=== PATIENT | female | born 1950 | race Caucasian/White ===

== ENCOUNTER → 2023-02-04 | Outpatient (CLI) | payer MEDICARE ==
[2023-02-04 18:25] LABS: BASOPHILS ABSOLUTE AUTO 0.02 K/mm3 (0.00-0.23); BASOPHILS PERCENT AUTO 0 % (0-2); EOSINOPHILS ABSOLUTE AUTO 0.19 K/mm3 (0.00-0.68); EOSINOPHILS PERCENT AUTO 4 % (0-6); Hemoglobin 12.9 g/dL (11.5-16.0); IMMATURE GRAN ABSOLUTE AUTO 0.01 K/mm3 (0.00-0.10); IMMATURE GRAN PERCENT AUTO 0 % (0-1); LYMPHOCYTES ABSOLUTE AUTO 1.23 K/mm3 (0.84-5.20); LYMPHOCYTES PERCENT AUTO 27 % (21-46); MONOCYTES ABSOLUTE AUTO 0.24 K/mm3 (0.16-1.47); MONOCYTES PERCENT AUTO 5 % (4-13); Mean Corpuscular HGB 29.3 pg (26.0-34.0); Mean Corpuscular HGB Conc 33.1 g/dL (31.5-36.5); Mean Corpuscular Volume 88 fL (80-100); Mean Platelet Volume 10.1 fL (9.1-12.4); NEUTROPHILS ABSOLUTE AUTO 2.93 K/mm3 (1.96-9.15); NEUTROPHILS PERCENT AUTO 64 % (41-73); Platelet Count 198 K/mm3 (150-400); RDW Coefficient Variation 12.5 % (11.7-14.2); RDW Standard Deviation 40.3 fL (35.1-46.3); Red Blood Cell Count 4.41 M/mm3 (3.80-5.20); White Blood Cell Count 4.62 K/mm3 (4.00-11.30)
[2023-02-04 19:00] LABS: Alanine Aminotransfer (ALT/SGP 21 U/L (12-78); Albumin, Blood 3.9 g/dL (3.4-5.0); Albumin/Globulin Ratio 1.3 (0.8-1.8); Alk Phos 89 U/L (50-136); Anion Gap 3 mmol/L (6-16); Aspartate Aminotrans (AST/SGOT 15 U/L (12-37); Bilirubin, Total 0.4 mg/dL (0.1-1.0); Blood Urea Nitrogen 13 mg/dL (8-24); CHOL/HDL RATIO 5.6; CO2, Blood 29 mmol/L (21-32); Calcium, Blood 8.8 mg/dL (8.5-10.1); Chloride, Blood 109 mmol/L (98-108); Cholesterol 229 mg/dL (50-200); Glucose, Blood 105 mg/dL (70-99); HDL Cholesterol 41 mg/dL (>39); LDL/HDL RATIO 3.7; Low Density Lipoprotein Chol 152 mg/dL (0-110); Sodium, Blood 141 mmol/L (136-145); Total Protein, Blood 6.9 g/dL (6.4-8.2); Triglycerides 180 mg/dL (30-160); Very Low Density Lipoprot Chol 36 mg/dL (6-32)
[2023-02-04 19:03] LABS: Bun/Creatinine Ratio 13.3 (12.0-20.0); Creatinine, Blood 0.98 mg/dL (0.40-1.00); Glomerular Filtration Rate 61 (60-)
== END ==
LOC: LAB SHORT 16:25 → LAB 16:25
PROVIDERS: Nurse Practitioner Family
DX: E78.00 Pure hypercholesterolemia, unspecified (principal)
CPT/HCPCS: 80053; 80061; 85025

== ENCOUNTER 2023-06-12 09:38 | Inpatient (IN) | payer MEDICARE ==
[2023-06-12] VITALS (18 sets, daily range): BP systolic 112–173; BP diastolic 66–161
[~2023-06-12] VITALS: Ht 162.6 cm; Wt 106.3 kg
[~2023-06-12 09:38] MED LIST: LEVO750 PO; LISI20 PO; METR500 PO; VISBIOME 112.51 EACH PO
[2023-06-12 10:27] LABS: BASOPHILS ABSOLUTE AUTO 0.02 K/mm3 (0.00-0.23); BASOPHILS PERCENT AUTO 0 % (0-2); EOSINOPHILS ABSOLUTE AUTO 0.05 K/mm3 (0.00-0.68); EOSINOPHILS PERCENT AUTO 1 % (0-6); Hemoglobin 13.4 g/dL (11.5-16.0); IMMATURE GRAN ABSOLUTE AUTO 0.02 K/mm3 (0.00-0.10); IMMATURE GRAN PERCENT AUTO 0 % (0-1); LYMPHOCYTES ABSOLUTE AUTO 0.91 K/mm3 (0.84-5.20); LYMPHOCYTES PERCENT AUTO 11 % (21-46); MONOCYTES ABSOLUTE AUTO 0.46 K/mm3 (0.16-1.47); MONOCYTES PERCENT AUTO 6 % (4-13); Mean Corpuscular HGB 28.9 pg (26.0-34.0); Mean Corpuscular HGB Conc 33.5 g/dL (31.5-36.5); Mean Corpuscular Volume 86 fL (80-100); Mean Platelet Volume 9.6 fL (9.1-12.4); NEUTROPHILS ABSOLUTE AUTO 6.89 K/mm3 (1.96-9.15); NEUTROPHILS PERCENT AUTO 83 % (41-73); Platelet Count 236 K/mm3 (150-400); RDW Coefficient Variation 13.2 % (11.7-14.2); RDW Standard Deviation 41.2 fL (35.1-46.3); Red Blood Cell Count 4.64 M/mm3 (3.80-5.20); White Blood Cell Count 8.35 K/mm3 (4.00-11.30)
[2023-06-12 10:46] LABS: Albumin, Blood 4.1 g/dL (3.4-5.0); Albumin/Globulin Ratio 1.3 (0.8-1.8); Calcium, Blood 9.7 mg/dL (8.5-10.1); Creatinine, Blood 1.2 mg/dL (0.40-1.00); Globulin, Blood 3.2 g/dL (2.2-4.0); Potassium, Blood 2.8 mmol/L (3.5-5.5); Total Protein, Blood 7.3 g/dL (6.4-8.2)
[2023-06-12] MEDS ORDERED: NS 1,000 ML IV SCH (11:10)
[2023-06-12] MEDS ORDERED: Ketorolac Tromethamine 30mg Vial IM ONE (11:10)
[2023-06-12] MEDS ORDERED: Potassium Chl 20MEQ/Water100ML 100 ML IV ONE (11:10)
[2023-06-12] MEDS ORDERED: Ondansetron HCl 2 MG / ML 2ML Vial IV ONE (11:10)
[2023-06-12] MEDS ORDERED: POTASSIUM CHLORIDE 80 MEQ IV SCH (12:40)
[2023-06-12] MEDS ORDERED: Ampicillin Sod/Sulbactam Sod 3 GM in NS 100 ML IV SCH (13:00)
[2023-06-12] MEDS ORDERED: FentaNYL Citrate 50 MCG/ML 2 ML Injection IV PRN (13:10)
[2023-06-12] MEDS ORDERED: Ondansetron HCl 2 MG / ML 2ML Vial IV PRN (13:10)
[2023-06-12] MEDS ORDERED: Lactated Ringer's 1,000 ML IV SCH ×2 (13:10→14:45)
[2023-06-12] MEDS ORDERED: Potassium Chloride 40 MEQ in NS 250 ML IV SCH (13:30)
[2023-06-12] MEDS ORDERED: propofoL 20 ML IV ONE (14:51)
[2023-06-12] MEDS ORDERED: Rocuronium Bromide 10 MG/ML 5ML Injection IV ONE (14:51)
[2023-06-12] MEDS ORDERED: FentaNYL Citrate 50 MCG/ML 5 ML Injection ONE (14:51)
[2023-06-12] MEDS ORDERED: Lidocaine HCl 2% 20 ML MDV ONE (14:51)
[2023-06-12] MEDS ORDERED: Bupivacaine 0.5% HCl 5 MG/ML 30MLVIAL ONE (15:31)
[2023-06-12 16:00] LABS: PCO2 Arterial 37.5 mmHg (35-45); PO2 Arterial 162 mmHg (80-100); pH Blood Arterial 7.43 (7.35-7.45)
[2023-06-12] MEDS ORDERED: Dexamethasone Sod Phos 10 MG/ML 1ML VIAL ONE (16:22)
[2023-06-12] MEDS ORDERED: Phenylephrine HCl 100 MCG/ML-NS 10MLSYR (1MG/10ML) ONE (16:26)
[2023-06-12 16:45] LABS: Albumin, Blood 2.8 g/dL (3.4-5.0); Albumin/Globulin Ratio 1.2 (0.8-1.8); Bilirubin, Total 0.7 mg/dL (0.1-1.0); Bun/Creatinine Ratio 12.6 (12.0-20.0); Calcium, Blood 8.4 mg/dL (8.5-10.1); Creatinine, Blood 1.03 mg/dL (0.40-1.00); Globulin, Blood 2.4 g/dL (2.2-4.0); Potassium, Blood 3.1 mmol/L (3.5-5.5)
[2023-06-12 16:46] LABS: Total Protein, Blood 5.2 g/dL (6.4-8.2)
[2023-06-12] MEDS ORDERED: Ondansetron HCl 2 MG / ML 2ML Vial ONE (16:47)
[2023-06-12] MEDS ORDERED: Sugammadex Sodium 200 MG/2ML SDV (100 MG/ML) ONE (16:49)
[2023-06-12] MEDS ORDERED: FentaNYL Citrate 50 MCG/ML 2 ML Injection ONE (17:40)
[2023-06-12] MEDS ORDERED: HYDROmorphone HCl/Pf 1MG SYR ONE (18:04)
[2023-06-13] VITALS (12 sets, daily range): BP systolic 83–189; BP diastolic 50–120
[2023-06-13] MEDS ORDERED: HYDROmorphone HCl/Pf 1MG SYR IV PRN (01:05)
[2023-06-13] MEDS ORDERED: Acetaminophen 325 MG TABLET PO PRN (01:05)
[2023-06-13] MEDS ORDERED: HYDROmorphone 1 MG/ML 30 ML Bag IV PRN ×2 (01:25→07:50)
[2023-06-13 03:56] LABS: BASOPHILS PERCENT AUTO 0 % (0-2); EOSINOPHILS PERCENT AUTO 0 % (0-6); Hematocrit 36.9 % (33.0-51.0); Hemoglobin 12.5 g/dL (11.5-16.0); IMMATURE GRAN ABSOLUTE AUTO 0.03 K/mm3 (0.00-0.10); IMMATURE GRAN PERCENT AUTO 0 % (0-1); LYMPHOCYTES ABSOLUTE AUTO 0.33 K/mm3 (0.84-5.20); LYMPHOCYTES PERCENT AUTO 3 % (21-46); MONOCYTES ABSOLUTE AUTO 0.39 K/mm3 (0.16-1.47); MONOCYTES PERCENT AUTO 4 % (4-13); Mean Corpuscular HGB 29.3 pg (26.0-34.0); Mean Corpuscular HGB Conc 33.9 g/dL (31.5-36.5); Mean Corpuscular Volume 86 fL (80-100); Mean Platelet Volume 9.9 fL (9.1-12.4); NEUTROPHILS ABSOLUTE AUTO 9.55 K/mm3 (1.96-9.15); NEUTROPHILS PERCENT AUTO 93 % (41-73); Platelet Count 180 K/mm3 (150-400); RDW Coefficient Variation 13.2 % (11.7-14.2); RDW Standard Deviation 41.2 fL (35.1-46.3); Red Blood Cell Count 4.27 M/mm3 (3.80-5.20)
[2023-06-13 04:14] LABS: Bun/Creatinine Ratio 16.5 (12.0-20.0); Calcium, Blood 8.9 mg/dL (8.5-10.1); Creatinine, Blood 0.91 mg/dL (0.40-1.00); Potassium, Blood 3.4 mmol/L (3.5-5.5)
[2023-06-13] MEDS ORDERED: HYDROmorphone HCl/Pf 1MG SYR IV ONE (07:45)
[2023-06-13] MEDS ORDERED: Ketorolac Tromethamine 15mg Vial IV ONE (07:45)
--- NOTE | 2023-06-13 07:46 | NUR ---
SHIFT SUMMARY PT A&O X4. VSS T/O SHIFT. PT WITH SHADI DRESSING TO MIDLINE, DRESSING WITH SCANT AMOUNT OF OOZE AROUND EDGES OF DRESSING. PT WITH FENTANYL PER APR WITHOUT RELIEF. PROVIDER ORDERS FOR DILUADID PRN PER APR AND PLASTER AND STUCCO WORKER PUMP PER APR. THIS SEEMED TO HELP ALLIEVATE PT'S PAIN FOR A SHORT TIME, THEN PT BECAME PAINFUL, DIAPHORETIC AND "SICK". MEDICATION PER APR. PT CONTINUED TO REPORT PAIN IN "BELLY, STOMACH" 8-11/02 THAT MEDICATION IS NOT HELPING AT THIS TIME. PASSED ALONG TO DAYSHIFT RN TO REASSESS. OSTOMY IN PLACE WITH LESS THAN 200 MLS OUT OF BROWN, REDDISH LIQUID. WILL UPDATE ONCOMING RN
[2023-06-13] MEDS ORDERED: Enoxaparin 40 MG/0.4 ML SYR SC SCH (09:00)
[2023-06-13] MEDS ORDERED: Ketorolac Tromethamine 15mg Vial IV PRN (10:00)
--- NOTE | 2023-06-13 16:51 | NUR ---
SHIFT SUMMARY POD 1 COLECTOMY WITH NEW COLOSTOMY. PAIN CONTROLLED PER EMAR. PT REPORTS INCREASED RELIEF TODAY WITH START OF TORADOL. NO FLATUS SEEN IN BAG, SMALL AMOUNT OF BROWN STOOL IN BAG. PT HAS REMAINED VERY TIRED TODAY, ENCOURAGING PATIENT TO MOVE IN BED. PT AWOKE FROM A NAP EARLY THIS AFTERNOON AND REPORTED SEEING HER SON IN THE ROOM, IT RESOLVED AND HAS HAD NO FURTHER HALLUCINATIONS. INTERMITTENT NAUSEA DURING SHIFT, MANAGED WELL PER EMAR. DRESSING REMAINS UNCHANGED.
--- NOTE | 2023-06-13 16:53 | NUR ---
B/P CHARTED AND REPORTED TO PRIMARY RN AT APPROX 0735. BOTH PRIMARY RN AND [facility] COORDINATOR AWARE OF PT'S C/O PAIN AND B/P READING. THIS POLISHER ALUMINUM WAS TOLD BY PRIMARY RN THAT B/P WAS RECHECKED BY [facility] COORDINATOR AT APPROX 0900. NO FURTHER DIRECTIVE GIVEN BY PRIMARY RN TO THIS POLISHER ALUMINUM TO RECHECK PT'S B/P. THIS POLISHER ALUMINUM TOOK AND CHARTED FULL SET OF VITALS AT 1555.
[2023-06-13] MEDS ORDERED: Lactated Ringer's 1,000 ML IV ONE (18:55)
[2023-06-13 19:16] LABS: Hematocrit 41.7 % (33.0-51.0); Hemoglobin 13.6 g/dL (11.5-16.0); Mean Corpuscular HGB 28.7 pg (26.0-34.0); Mean Corpuscular HGB Conc 32.6 g/dL (31.5-36.5); Mean Corpuscular Volume 88 fL (80-100); Mean Platelet Volume 9.8 fL (9.1-12.4); Platelet Count 223 K/mm3 (150-400); RDW Coefficient Variation 13.6 % (11.7-14.2); RDW Standard Deviation 43.8 fL (35.1-46.3); Red Blood Cell Count 4.74 M/mm3 (3.80-5.20); White Blood Cell Count 5.57 K/mm3 (4.00-11.30)
--- NOTE | 2023-06-13 19:28 | NUR ---
entered room at approx 1830. pt states that she feels like she will pass out. vital signs taken. wnl. increased distention but passing stool from ostomy. catheter emptied at shift change 300 out. noted that that amount appeared to be present early afternoon. very dark in color. pt is moaning and appears very weak. notified dr. hussein. recieved orders to check vitals q2 hours, stop basal rate on the health consultant, give a 1ml bolus, labs ordered and to advance to ngt.
[2023-06-13 19:31] LABS: Bun/Creatinine Ratio 15.8 (12.0-20.0); Calcium, Blood 9.9 mg/dL (8.5-10.1); Creatinine, Blood 1.84 mg/dL (0.40-1.00); Potassium, Blood 4.5 mmol/L (3.5-5.5)
[2023-06-13 19:36] LABS: BAND PERCENT MAN 22 % (0-8); BASOPHILS PERCENT MAN 0 % (0-2); EOSINOPHILS PERCENT MAN 0 % (0-6); LYMPHOCYTES % ATYPICAL MANUAL 1 % (0-0); LYMPHOCYTES ABSOLUTE MAN 0.66 K/mm3 (0.84-5.20); LYMPHOCYTES PERCENT MAN 11 % (21-46); METAMYELOCYTE ABSOLUTE MAN 0.22 K/mm3 (0.00-0.00); METAMYELOCYTE PERCENT MAN 4 % (0-0); MONOCYTES ABSOLUTE MAN 0.55 K/mm3 (0.16-1.47); MONOCYTES PERCENT MAN 10 % (4-13); NEUTROPHILS ABSOLUTE MAN 4.12 K/mm3 (1.96-9.15); SEG NEUTROPHILS PERCENT MAN 52 % (41-73); TOTAL CELLS COUNTED 100
[2023-06-13] MEDS ORDERED: NS 1,000 ML IV SCH ×2 (20:20→21:00)
--- NOTE | 2023-06-13 20:41 | NUR ---
DR. NICOLE CAME TO SEE PATIENT. ORDERS RECIEVED TO TRANSFER TO ICU FOR CLOSER MONITORING. REPORT GIVEN TO RECIEVING ICU NURSE TAKEN OVER WITH BELONGINGS. PT HAVING THICK BROWN OUTPUT FROM NGT. FAMILY WITH PATIENT TO ICU.
[2023-06-13 22:17] LABS: Source, Urine Foley catheter
[2023-06-13 22:20] LABS: Blood, Urine 3+ (Neg); Glucose Qualitative, Urine Neg (Neg); Ketones, Urine 3+ (Neg); Leukocyte Esterase, Urine 1+ (Neg); Nitrite, Urine Neg (Neg); Protein, Urine 2+ (Neg); Specific Gravity, Urine 1.025 (1.003-1.022); Urobilinogen, Urine 1+ (Normal)
[2023-06-13] MEDS ORDERED: NS 1,000 ML IV ONE (22:30)
[2023-06-13 22:34] LABS: Appearance, Urine Hazy (Clear); Bilirubin, Urine 2+ (Neg); Color, Urine Amber (P-Yellow)
[2023-06-13 22:35] LABS: Amorphous Light (0-Heavy); Bacteria Few /hpf; Hyaline Casts 25-50 /lpf (0-2); Mucus Mod (0-Heavy); Red Blood Cells, Urine 25-50 /hpf (0-2); Squamous Epithelial Cells Not Seen /hpf (Few)
[2023-06-13] MEDS ORDERED: NS 500 ML IV ONE (23:20)
[2023-06-14] VITALS (17 sets, daily range): BP systolic 60–113; BP diastolic 44–89
[2023-06-14 03:49] LABS: Hematocrit 35.8 % (33.0-51.0); Hemoglobin 11.6 g/dL (11.5-16.0); Mean Corpuscular HGB Conc 32.4 g/dL (31.5-36.5); Mean Corpuscular Volume 90 fL (80-100); Mean Platelet Volume 9.9 fL (9.1-12.4); Platelet Count 186 K/mm3 (150-400); RDW Coefficient Variation 13.8 % (11.7-14.2); RDW Standard Deviation 45.1 fL (35.1-46.3); White Blood Cell Count 4.46 K/mm3 (4.00-11.30)
[2023-06-14 04:08] LABS: Bun/Creatinine Ratio 17.2 (12.0-20.0); Calcium, Blood 8.4 mg/dL (8.5-10.1); Creatinine, Blood 2.04 mg/dL (0.40-1.00); Phosphorus, Blood 3.5 mg/dL (2.5-4.9); Potassium, Blood 4.1 mmol/L (3.5-5.5)
[2023-06-14] MEDS ORDERED: NS 500 ML IV ONE (04:10)
[2023-06-14 04:24] LABS: BAND PERCENT MAN 29 % (0-8); BASOPHILS PERCENT MAN 0 % (0-2); EOSINOPHILS PERCENT MAN 0 % (0-6); LYMPHOCYTES ABSOLUTE MAN 0.31 K/mm3 (0.84-5.20); LYMPHOCYTES PERCENT MAN 7 % (21-46); METAMYELOCYTE ABSOLUTE MAN 0.26 K/mm3 (0.00-0.00); METAMYELOCYTE PERCENT MAN 6 % (0-0); MONOCYTES ABSOLUTE MAN 0.44 K/mm3 (0.16-1.47); MONOCYTES PERCENT MAN 10 % (4-13); MYELOCYTE ABSOLUTE MAN 0.08 K/mm3 (0.00-0.00); MYELOCYTE PERCENT MAN 2 % (0-0); NEUTROPHILS ABSOLUTE MAN 3.34 K/mm3 (1.96-9.15); SEG NEUTROPHILS PERCENT MAN 46 % (41-73); TOTAL CELLS COUNTED 100
--- NOTE | 2023-06-14 05:52 | NUR ---
PT AOX4 AND MOVES ALL EXTREMITIES. PAIN WELL MANAGED WITH ANALYTICAL LABORATORY TECHNICIAN DILAUDID. SR AND INTERMITTENTLY HYPOTENSIVE. A TOTAL OF 2L NS BOLUSES GIVEN IN ICU OVERNIGHT. 4L NC WHILE SLEEPING. NPO WITH NGT TO LIS. OSTOMY WITH GOOD OUTPUT. QUEVEDO IN PLACE WITH LOW URINE OUTPUT. NS INFUSING AT 200 ML/HR.
[2023-06-14] MEDS ORDERED: Enoxaparin 30 MG/0.3 ML SYR SC SCH (09:00)
[2023-06-14] MEDS ORDERED: Lactated Ringer's 1,000 ML IV SCH (12:00)
--- NOTE | 2023-06-14 14:01 | NUR ---
PT A/O X4, DENIES PAIN BUT DOES HAVE DILAUDID RECLAMATION KETTLE TENDER. ONLY HAS NAUSEA WHEN COLOSTOMY IS EMPTIED. NG TUBE TO LIS PUTTING OUT GREEN BILE. PT EATING ICE CHIPS. COLOSTOMY PUTTING OUT LIQUID BROWN STOOL AND URINE OUTPUT IMPROVED. BP STABLE TODAY. PT CHANGED TO SURGICAL STATUS AND TRANSFERED TO ROOM 229.
--- NOTE | 2023-06-14 14:09 | NUR ---
ARRIVAL TO UNIT PT ARRIVED TO UNIT FROM ICU. NGT CONNECTED TO L.I.S. THICK BROWN OUTPUT SUCTIONING OUT IMMEDIATLY. OSTOMY BAG HAS SMALL AMOUNT OF BROWN STOOL. MIDLINE PICCO DRESSING APPEARS CDI. FOAM COMPRESSED. PT 97% ON ROOM AIR. PT IS REQUESTING A FAN AND NO COVERS SHE WANTS TO "BE COLD" FOR HER NAUSEA. TANKAGE GRINDER PUMP CONNECTED PT USING BUTTON APPROPRIALY. AA0X4 PT SEEMS DYSPNIC WHEN TALKING BUT MAINTAINS SATURATIONS AND DENIES ANY SOB. LUNG SOUNDS CLEAR T/O. PT REPORTS HER ARMS FEEL "PUFFY" AT THIS TIME, NON PITTING BUT ARMS ARE SWOLLEN COMPARED TO YESTERDAY. PT HAS CALL LIGHT IN REACH AND IS NOTIFYING FAMILY OF HER TRANSFER. DENIES FURTHER NEEDS AT THIS TIME.
--- NOTE | 2023-06-14 18:14 | NUR ---
SHIFT SUMMARY NO ACUTE CHANGES SINCE ARRIVAL TO UNIT. OSTOMY CONTINUES TO HAVE SOFT BROWN STOOL IN BAG. APPROX 300ML OUT OF NGT SINCE ARRIVAL TO UNIT. PT EATING ICE CHIPS FOR COMFORT. THICK BROWN OUTPUT IN NGT, OUTPUT APPEARS THINNER THIS AFTERNOON. PT REPORTS PAIN BETTER TODAY. CALLING APPROPRIATLY.
[2023-06-15 04:58] LABS: Hematocrit 36.2 % (33.0-51.0); Hemoglobin 11.6 g/dL (11.5-16.0); Mean Corpuscular HGB 28.8 pg (26.0-34.0); Mean Corpuscular Volume 90 fL (80-100); Mean Platelet Volume 10.2 fL (9.1-12.4); Platelet Count 168 K/mm3 (150-400); RDW Standard Deviation 45.9 fL (35.1-46.3); Red Blood Cell Count 4.03 M/mm3 (3.80-5.20); White Blood Cell Count 5.02 K/mm3 (4.00-11.30)
[2023-06-15 05:07] VITALS: BP 93/67
[2023-06-15 05:32] LABS: Albumin, Blood 2.2 g/dL (3.4-5.0); Albumin/Globulin Ratio 0.7 (0.8-1.8); Bilirubin, Total 0.4 mg/dL (0.1-1.0); Bun/Creatinine Ratio 24.4 (12.0-20.0); Calcium, Blood 9.1 mg/dL (8.5-10.1); Creatinine, Blood 2.54 mg/dL (0.40-1.00); Globulin, Blood 3.2 g/dL (2.2-4.0); Potassium, Blood 3.4 mmol/L (3.5-5.5); Total Protein, Blood 5.4 g/dL (6.4-8.2)
[2023-06-15 05:46] LABS: BAND PERCENT MAN 40 % (0-8); BASOPHILS PERCENT MAN 0 % (0-2); EOSINOPHILS PERCENT MAN 0 % (0-6); LYMPHOCYTES ABSOLUTE MAN 0.35 K/mm3 (0.84-5.20); LYMPHOCYTES PERCENT MAN 7 % (21-46); METAMYELOCYTE PERCENT MAN 2 % (0-0); MONOCYTES PERCENT MAN 14 % (4-13); MYELOCYTE ABSOLUTE MAN 0.05 K/mm3 (0.00-0.00); MYELOCYTE PERCENT MAN 1 % (0-0); NEUTROPHILS ABSOLUTE MAN 3.81 K/mm3 (1.96-9.15); SEG NEUTROPHILS PERCENT MAN 36 % (41-73); TOTAL CELLS COUNTED 100
[2023-06-15 07:16] VITALS: BP 118/50
[2023-06-15 07:18] VITALS: BP 115/50
--- NOTE | 2023-06-15 08:24 | NUR ---
SHIFT SUMMARY POD 3- COLECTOMY W/COLOSTOMY. LLQ OSTOMY W/700ML LIQUID BROWN STOOL THIS SHIFT. NG TO R NARES W/650ML BROWNISH GREEN DRAINAGE W/SEDIMENT. MIDLINE SHADI DRESSING COMPRESSED & INTACT, MINIMAL SHADOWING ON DRESSING. PT REPORTS MIN ABD PAIN COMPARED TO PREVIOUSLY, STATES SHE PRESSES SPARES SCHEDULER TO STAY ON TOP OF PAIN LEVEL. DENIES N/V. ACTIVE BT. HAD 275ML DARK [place]A URINE OUT QUEVEDO. AOX4. VSS. CALL LIGHT IN REACH & PT ABLE TO MAKE NEEDS KNOWN.
[2023-06-15] MEDS ORDERED: NS 1,000 ML IV ONE (10:50)
[2023-06-15] MEDS ORDERED: NS KCl 20mEq 1,000 ML IV SCH (11:00)
[2023-06-15 14:41] VITALS: BP 130/60
--- NOTE | 2023-06-15 15:42 | NUR ---
OSTOMY APPLIANCE CHANGED. PT REQUIRES 2 3/4 OSTOMY APPLIANCE AT THIS TIME. INCISION SITE CLEANSED AND MEDIPORE DRESSING PLACED.
[2023-06-15] MEDS ORDERED: NS 1,000 ML IV SCH ×2 (18:05→18:25)
--- NOTE | 2023-06-15 20:03 | NUR ---
SHIFT SUMMARY PT IS POD#3 FROM COLECTOMY WITH OSTOMY. PT HAS HAD LIQUID STOOL OUTPUT FROM OSTOMY T/O THE DAY. PT CONTINUES TO HAVE SIGNIFICANT DARK GREEN OUTPUT FROM NG. PT IS TAKING IN ICE CHIPS. PT IS A 2 PERSON ASSIST FOR BED MOBILITY. SHE WORKED WITH PHYSICAL THERAPY TODAY. PAIN MANAGED WITH CHIEF SECURITY AND SAFETY OFFICER. BEDSIDE REPORT GIVEN TO PARIS GOEL.
[2023-06-15 20:37] VITALS: BP 139/72
[2023-06-15] MEDS ORDERED: Ampicillin Sod/Sulbactam Sod 3 GM in NS 100 ML IV SCH (21:00)
[2023-06-16 02:38] VITALS: BP 123/63
--- NOTE | 2023-06-16 05:41 | NUR ---
SHIFT SUMMARY AOX4. POD4-COLECTOMY W/OSTOMY. 500ML LIQUID BROWN OUTPUT FROM OSTOMY. MIDLINE MEDIPORE C/D/I. DENIES N/V. PASSING FLATUS FROM OSTOMY. QUEVEDO W/400ML DARK YELLOW UO. VSS, EXCEPT SPO2 DROPPED TO 88% ON RA WHILE SOUND ASLEEP-THEREFORE PLACED PT BACK ON 2L NC & SPO2 >95%. DENIES DYSPNEA. TOLERATING ICE CHIPS. REPORTS ONLY MINIMAL PAIN, STATES TIE KNITTER HELPER IS MANAGING PAIN LEVEL. CALL LIGHT IN REACH & WILL MONITOR.
[2023-06-16 07:23] VITALS: BP 144/78
[2023-06-16 10:24] LABS: Hematocrit 36.2 % (33.0-51.0); Hemoglobin 11.6 g/dL (11.5-16.0); Mean Corpuscular Volume 91 fL (80-100); Mean Platelet Volume 10.5 fL (9.1-12.4); Platelet Count 171 K/mm3 (150-400); RDW Coefficient Variation 14.1 % (11.7-14.2); RDW Standard Deviation 46.8 fL (35.1-46.3); White Blood Cell Count 8.36 K/mm3 (4.00-11.30)
[2023-06-16 10:44] LABS: BAND PERCENT MAN 5 % (0-8); BASOPHILS PERCENT MAN 0 % (0-2); EOSINOPHILS ABSOLUTE MAN 0.08 K/mm3 (0.00-0.68); EOSINOPHILS PERCENT MAN 1 % (0-6); LYMPHOCYTES ABSOLUTE MAN 1.25 K/mm3 (0.84-5.20); LYMPHOCYTES PERCENT MAN 15 % (21-46); METAMYELOCYTE ABSOLUTE MAN 0.16 K/mm3 (0.00-0.00); METAMYELOCYTE PERCENT MAN 2 % (0-0); MONOCYTES PERCENT MAN 6 % (4-13); NEUTROPHILS ABSOLUTE MAN 6.35 K/mm3 (1.96-9.15); SEG NEUTROPHILS PERCENT MAN 71 % (41-73); TOTAL CELLS COUNTED 100
[2023-06-16 11:17] LABS: Anion Gap 15 mmol/L (3-11); Blood Urea Nitrogen 48 mg/dL (8-24); Bun/Creatinine Ratio 45.7 (12.0-20.0); CO2, Blood 22 mmol/L (21-32); Calcium, Blood 8.4 mg/dL (8.5-10.1); Chloride, Blood 111 mmol/L (98-108); Creatinine, Blood 1.05 mg/dL (0.40-1.00); Glomerular Filtration Rate 56 (60-); Glucose, Blood 96 mg/dL (70-99); Phosphorus, Blood 3.1 mg/dL (2.5-4.9); Potassium, Blood 3.5 mmol/L (3.5-5.5); Sodium, Blood 144 mmol/L (136-145)
[2023-06-16 15:03] VITALS: BP 111/95
--- NOTE | 2023-06-16 18:36 | NUR ---
SHIFT SUMMARY PT IS POD#4 FROM COLECTOMY WITH OSTOMY. PT IS PRODUCING STOOL FROM THE OSTOMY. PT IS ALSO PASSING SOME STOOL FROM HER RECTUM. PT TOLERATED ICE CHIPS AND SIPS WITH NG TUBE CLAMPED T/O THE DAY. NG TUBE REMOVED THIS AFTERNOON, PT TOLERATING CLEAR LIQUIDS. QUEVEDO CATH REMOVED THIS AFTERNOON. PT WORKED WITH PHYSICAL THERAPY AND WAS ABLE TO SIT UP TO THE CHAIR TODAY, PT IS A 2 PERSON MINIMAL ASSIST. PAIN MANAGED WITH BINDING END STITCHER. INCREASED DRAINAGE NOTED FROM MIDLINE INCISION THIS AFTERNOON. MEDIPORE CHANGED. PT CALLS APPROPRIATELY.
[2023-06-16 19:18] VITALS: BP 119/89
--- NOTE | 2023-06-16 19:21 | NUR ---
BEDSIDE REPORT GIVEN TO MATHEW TOLEDO RN.
[2023-06-17] VITALS (8 sets, daily range): BP systolic 145–169; BP diastolic 67–101
[2023-06-17 03:28] LABS: Hematocrit 36.9 % (33.0-51.0); Hemoglobin 11.7 g/dL (11.5-16.0); Mean Corpuscular HGB 28.2 pg (26.0-34.0); Mean Corpuscular HGB Conc 31.7 g/dL (31.5-36.5); Mean Corpuscular Volume 89 fL (80-100); Mean Platelet Volume 9.9 fL (9.1-12.4); Platelet Count 199 K/mm3 (150-400); RDW Coefficient Variation 14.3 % (11.7-14.2); RDW Standard Deviation 46.4 fL (35.1-46.3); Red Blood Cell Count 4.15 M/mm3 (3.80-5.20); White Blood Cell Count 8.04 K/mm3 (4.00-11.30)
[2023-06-17 04:07] LABS: Albumin, Blood 2.1 g/dL (3.4-5.0); Anion Gap 10 mmol/L (3-11); Blood Urea Nitrogen 34 mg/dL (8-24); Bun/Creatinine Ratio 38.8 (12.0-20.0); CO2, Blood 27 mmol/L (21-32); Calcium, Blood 8.5 mg/dL (8.5-10.1); Chloride, Blood 112 mmol/L (98-108); Creatinine, Blood 0.88 mg/dL (0.40-1.00); Glomerular Filtration Rate 69 (60-); Glucose, Blood 109 mg/dL (70-99); Phosphorus, Blood 2.6 mg/dL (2.5-4.9); Potassium, Blood 3.5 mmol/L (3.5-5.5); Sodium, Blood 145 mmol/L (136-145)
[2023-06-17] MEDS ORDERED: NS 250 ML IV PRN (04:30)
--- NOTE | 2023-06-17 05:05 | NUR ---
SHIFT SUMMARY PT A&Ox4, CALLS AND COMMUNICATES NEEDS APPROPRIATELY. BP STABLE, HR 80-100's, DENIES CP/PRESSURE. SpO2> 92% RA, DENIES SOB. MIDLINE INCISION WITH LIGHT SEROSANGUINEOUS DRAINAGE, DRESSING CHANGED. OSTOMY WNL, w/ BROWN LIQUID OUTPUT. PT STILL PASSING VERY SMALL AMOUNTS OF LOOSE STOOL RECTALLY. PT w/ ONE EPISODE OF DARK GREEN EMESIS AND TWO EPISODES OF NAUSEA, MEDICATED PER EMAR. PT's ASSET SPECIALIST MANAGED PAIN. BLADDER SCANS DONE THROUGHOUT SHIFT. NO OTHER EVENTS, WILL REPORT TO ONCOMING RN.
[2023-06-17 05:41] LABS: BAND PERCENT MAN 12 % (0-8); BASOPHILS PERCENT MAN 0 % (0-2); EOSINOPHILS ABSOLUTE MAN 0.24 K/mm3 (0.00-0.68); EOSINOPHILS PERCENT MAN 3 % (0-6); LYMPHOCYTES ABSOLUTE MAN 0.24 K/mm3 (0.84-5.20); LYMPHOCYTES PERCENT MAN 3 % (21-46); METAMYELOCYTE ABSOLUTE MAN 0.08 K/mm3 (0.00-0.00); METAMYELOCYTE PERCENT MAN 1 % (0-0); MONOCYTES ABSOLUTE MAN 1.04 K/mm3 (0.16-1.47); MONOCYTES PERCENT MAN 13 % (4-13); MYELOCYTE ABSOLUTE MAN 0.32 K/mm3 (0.00-0.00); MYELOCYTE PERCENT MAN 4 % (0-0); NEUTROPHILS ABSOLUTE MAN 6.11 K/mm3 (1.96-9.15); SEG NEUTROPHILS PERCENT MAN 64 % (41-73); TOTAL CELLS COUNTED 100
[2023-06-17] MEDS ORDERED: Lactated Ringer's 1,000 ML IV SCH (10:05)
[2023-06-17] MEDS ORDERED: HydrALAZINE HCl 20 MG / ML 1ML Vial IV PRN (10:35)
[2023-06-17] MEDS ORDERED: Potassium Chloride 40 MEQ in NS 250 ML IV ONE (10:40)
--- NOTE | 2023-06-17 16:29 | NUR ---
SHIFT SUMMARY PATIENT IS ALERT AND ORIENTED X 4. PATIENT IS VERY PLEASANT AND COOPERATIVE WITH CARE. HAD SOME ISSUES WITH NAUSEA AND VOMITING DURING BEGINNING OF SHIFT AND HAD EMESIS WITH GREENISH BROWN LIQUID CONSISTENCY. MEDICATION PER EMAR FOR NAUSEA. PATIENT STATED THAT MADE HER FEEL BETTER. PATIENT WAS UP IN CHAIR WITH THERAPY. PATIENT HAD ONE UNMEASURED VOID AND DESCRIBED TO BE LARGE AMOUNT. ALSO HAD A BOWEL MOVEMENT RECTALLY. MIDLINE ABDOMEN INCISION. DRESSING REMAINED CLEAN, DRY AND INTACT. COLOSTOMY CONTINUES TO HAVE MODERATE OUTPUT AND PASSING FLATUS. ALL NEEDS ANTICIPATED AND MET. CALL LIGHT WITHING REACH.
[2023-06-18 05:15] VITALS: BP 174/88
--- NOTE | 2023-06-18 05:28 | NUR ---
SHIFT SUMMARY POD6 SIGMOID COLECTOMY W/ OSTOMY CREATION. MIDLINE INCISION DRESSING CHANGED TONIGHT D/T SS DRAINAGE. MODERATE OUTPUT OTED FROM OSTOMY, STOMA REMAINS PINK BEEFY AND MOIST. OUTPUT IS GREEN, LIQUIDY, AND MUCOUS LIKE. VSS, SOME HTN NOTED. PT MEDICATED PER EMAR. PT UTILIZED THE BEDPAN T/O THE NIGHT D/T DIFFUSE WEAKNESS. TOLLERATING SIPS AND CHIPS. ONE EMESIS NOTED, BRIGHT GREEN BILE LIKE LIQUID. LARGE EMESIS BUT UNABLE TO MEASURE. PT REPORTS IMMEDIATE RELIEF AFTER THIS. PT REPORTS SLEEPING WELL, PAIN IS CONTROLLED WITH OFFICE CLERK ASSISTANT. NO ACUTE EVENTS NOTED.
[2023-06-18 06:33] VITALS: BP 144/67
[2023-06-18 07:17] LABS: Albumin, Blood 2.3 g/dL (3.4-5.0); Anion Gap 13 mmol/L (3-11); Blood Urea Nitrogen 27 mg/dL (8-24); Bun/Creatinine Ratio 34.6 (12.0-20.0); CO2, Blood 26 mmol/L (21-32); Calcium, Blood 9.1 mg/dL (8.5-10.1); Chloride, Blood 113 mmol/L (98-108); Creatinine, Blood 0.78 mg/dL (0.40-1.00); Glomerular Filtration Rate 80 (60-); Glucose, Blood 102 mg/dL (70-99); Magnesium, Blood 2.3 mg/dL (1.6-2.4); Phosphorus, Blood 2.5 mg/dL (2.5-4.9); Potassium, Blood 3.6 mmol/L (3.5-5.5); Sodium, Blood 148 mmol/L (136-145)
[2023-06-18 07:22] VITALS: BP 143/67
[2023-06-18] MEDS ORDERED: HYDROmorphone HCl/Pf 1MG SYR IV PRN (12:15)
--- NOTE | 2023-06-18 13:46 | NUR ---
DIL GRADUATE RN DISCONTINUED AT THIS TIME. SPOKE WITH PATIENT AND EDUCATED ON NEW PAIN MANAGEMENT PLAN. SHE IS AGREEABLE AND REPORTS PAIN MUCH IMPROVED TODAY.
[2023-06-18] MEDS ORDERED: Nystatin 100,000 Unit/GM CREAM 15 GM TOP SCH (14:00)
--- NOTE | 2023-06-18 14:02 | NUR ---
PT REQUESTS TO BE FULL CODE AT THIS TIME. SHE SPOKE WITH FAMILY AND PHYSICIANS. SPOKE WITH DR. EDI. ORDERS PLACED AT THIS TIME PURPLE BAND REMOVED FROM LEFT WRIST.
[2023-06-18 14:30] VITALS: BP 126/70
--- NOTE | 2023-06-18 16:40 | NUR ---
SHIFT SUMMARY POSTOP DAY #5 SIGMOID COLECTOMY WITY COLOSTOMY A&O X 4. PLEASANT AND COOPERATIVE WITH NORMAL MOOD AND AFFECT. LETAHRGY AND FATIGUE IMPROVING. PARTICIPATED WITH PT AND OT TODAY. MAINTENANCE ASSOCIATE DISCONTINUED AND WAS CHANGED TO PRN IV PUSH DILAUDID EVERY TWO HOURS. PATIENT HAS NOT REQUESTED AND PAIN APPEARED TO BE MANAGED AT THIS TIME. MIDLINE ABD DRESSING CHANGED WITH NEW MEDIPORT. MODERATE SEROSANGUINEOUS EXUDATE OBSERVED. STOMA CONTINUES TO PRODUCE MODERATE AMOUNT OF STOOL. NO NAUSEA OR VOMITING THIS SHIFT. VSS. NOT HYPERTENSIVE THIS SHIFT. CONTINUES IV FLUIDS. PPN ORDERED BY PHYSICIAN AND TO START THIS EVENING WITH CBG CHECKS EVERY 6 HOURS. ALL PATIENT'S NEEDS ANTICIPATED AND MET. CALL LIGHT WITHIN REACH.
[2023-06-18 19:20] VITALS: BP 147/73
[2023-06-19 03:40] LABS: Hemoglobin 10.4 g/dL (11.5-16.0); Mean Corpuscular HGB 28.7 pg (26.0-34.0); Mean Corpuscular HGB Conc 32.5 g/dL (31.5-36.5); Mean Corpuscular Volume 88 fL (80-100); Mean Platelet Volume 10.3 fL (9.1-12.4); Platelet Count 172 K/mm3 (150-400); RDW Coefficient Variation 14.1 % (11.7-14.2); RDW Standard Deviation 45.5 fL (35.1-46.3); Red Blood Cell Count 3.62 M/mm3 (3.80-5.20); White Blood Cell Count 8.95 K/mm3 (4.00-11.30)
[2023-06-19 04:15] LABS: Anion Gap 8 mmol/L (3-11); Blood Urea Nitrogen 24 mg/dL (8-24); Bun/Creatinine Ratio 30.3 (12.0-20.0); CO2, Blood 29 mmol/L (21-32); Calcium, Blood 8.6 mg/dL (8.5-10.1); Chloride, Blood 110 mmol/L (98-108); Creatinine, Blood 0.79 mg/dL (0.40-1.00); Glomerular Filtration Rate 78 (60-); Glucose, Blood 101 mg/dL (70-99); Potassium, Blood 3.4 mmol/L (3.5-5.5); Sodium, Blood 144 mmol/L (136-145); Triglycerides 190 mg/dL (30-160)
--- NOTE | 2023-06-19 04:16 | NUR ---
SHIFT SUMMARY POD6 SIGMOID COLECTOMY W/ COLOSTOMY CREATION. MIDLINE INCISION REQUIRED ONE DRESSING CHANGE T/O THE NIGHT D/T YELLOW SS DRAINAGE. STOMA REMAINS PINK AND BEEFY W/STOOL AND FLATTUS OUTPUT. VSS. PT SLEPT WELL T/O THE NIGHT. TOLLERATING SIPS AND CHIPS. PT AMBULATED OOB TO VOID T/O THE NIGHT. SHE DID NOT REQUIRE ANY PAIN MEDICATION. DRESSING CHANGED ON POWERGLIDE LINE. PPN INFUSING PER ORDER. NO ACUTE EVENTS NOTED T/O THE NIGHT. PLAN TO CONTINUE TO WORK WITH PT/OT AND ADVANCE CARE PER DOCTOR. THE PATIENT IS CURRENTLY SLEEPING, IN NO DISTRESS, CALL LIGHT IN REACH
[2023-06-19 04:38] LABS: BAND PERCENT MAN 10 % (0-8); BASOPHILS PERCENT MAN 0 % (0-2); EOSINOPHILS ABSOLUTE MAN 0.17 K/mm3 (0.00-0.68); EOSINOPHILS PERCENT MAN 2 % (0-6); LYMPHOCYTES ABSOLUTE MAN 1.96 K/mm3 (0.84-5.20); LYMPHOCYTES PERCENT MAN 22 % (21-46); MONOCYTES ABSOLUTE MAN 0.26 K/mm3 (0.16-1.47); MONOCYTES PERCENT MAN 3 % (4-13); MYELOCYTE ABSOLUTE MAN 0.08 K/mm3 (0.00-0.00); MYELOCYTE PERCENT MAN 1 % (0-0); NEUTROPHILS ABSOLUTE MAN 6.44 K/mm3 (1.96-9.15); SEG NEUTROPHILS PERCENT MAN 62 % (41-73); TOTAL CELLS COUNTED 100
[2023-06-19 07:12] VITALS: BP 173/106
--- NOTE | 2023-06-19 07:32 | NUR ---
ASSUMPTION OF CARE AT 0500. REPORT RECEIVED FROM MICHAEL Slaughter RN. PT RESTING WITH CALL LIGHT IN REACH DURING ROUNDS. REPORT GIVEN TO DAY SHIFT RN.
[2023-06-19 08:06] VITALS: BP 150/88
[2023-06-19] MEDS ORDERED: Enoxaparin 40 MG/0.4 ML SYR SC SCH (09:00)
[2023-06-19 10:27] LABS: Phosphorus, Blood 2.8 mg/dL (2.5-4.9)
[2023-06-19] MEDS ORDERED: Furosemide 10 MG / ML 2ML Vial IV SCH (10:45)
[2023-06-19] MEDS ORDERED: Potassium Chloride 20 MEQ TabCR PO ONE (11:00)
[2023-06-19 11:23] VITALS: BP 158/88
[2023-06-19 12:57] VITALS: BP 152/81
[2023-06-19 14:47] VITALS: BP 151/79
--- NOTE | 2023-06-19 16:03 | NUR ---
MIDLINE DRESSING CHANGED AND WOUND CLEANSED. ISAIAH IN PLACE. MODERATE PURULENT DRAINAGE COVERING 75% OF DRESSING. SURROUNDING SKIN COLOR IS NORMAL FOR THE PATIENT. NO WOUND EDGE EDEMA NOTED.
--- NOTE | 2023-06-19 16:58 | NUR ---
PATIENT IS ALERT AND ORIENTED AND COOPERATIVE WITH CARE. OSTOMY IS BEEFY PINK WITH LIQUID BROWNISH/GREEN OUTPUT. STARTED ON CLEAR LIQUID DIET, SHE DID BECOME NAUSEOUS FOLLOWING LUNCH. PPN IS INFUSING. BLOOD GLUCOSE CHECKS DC'D. STARTED ON IV LASIX TODAY. FLUID BALANCE IS -2030 AT THIS TIME. UP TO THE BSC. WORKED WITH OT TODAY. NO C/O PAIN. WILL CONTINUE TO MONITOR
[2023-06-19 18:31] VITALS: BP 151/87
--- NOTE | 2023-06-19 18:47 | NUR ---
PATIENT HAS N/V FOLLOWING DINNER, MEDICATED PER EMAR
[2023-06-20 03:59] VITALS: BP 154/89
--- NOTE | 2023-06-20 06:45 | NUR ---
SHIFT SUMMARY PT HAS RESTED MOST OF THE NIGHT. INTERMITTENT ABD PAIN RELEIVED WITH MEDS PER EMAR. PT DID HAVE SOME NAUSEA WITH EMESIS AT THE START OF THE SHIFT. PT DID NOT HAVE ANYMORE N/V THE NIGHT PROGRESSED. OSTOMY PUTTING OUT BROWN LIQUID STOOL. BOWEL TONES HYPOACTIVE. PT HAS BEEN UP TO THE BSC WITH 1 PA, PT IS WEAK AND SLOW TO MOVE, BUT IS ABLE TO SWING LEGS BACK IN BED INDEPENDENTLY AFTER AMBULATING FROM THE BSC. IV NUTRITION INFUSING. VITALS STABLE. BED IN LOWEST POSITION, CALL LIGHT WITHIN REACH.
[2023-06-20 07:19] VITALS: BP 122/74
[2023-06-20 13:11] LABS: Bun/Creatinine Ratio 23.7 (12.0-20.0); Calcium, Blood 8.3 mg/dL (8.5-10.1); Creatinine, Blood 0.76 mg/dL (0.40-1.00); Potassium, Blood 3.5 mmol/L (3.5-5.5)
[2023-06-20 15:38] VITALS: BP 132/77
--- NOTE | 2023-06-20 17:08 | NUR ---
SHIFT SUMMARY POD8 SIG COL W/OSTOMY, A&OX4, VSS/RA, SHERLEY PO FULL LIQUID DIET/DENIES N&V, VOIDING WELL, AMB SBA FWW/GB TO BRP/HALLWAY AND UP TO CHAIR FOR MEALS, PAIN MANAGED, EXT DWELL DRAWS/FLUSHES WELL/PPN PER EMAR. WILL REPORT TO ONCOMING NOC AMANDO.
[2023-06-20 18:19] VITALS: BP 138/77
[2023-06-21 04:09] VITALS: BP 142/81
[2023-06-21 04:34] LABS: BASOPHILS ABSOLUTE AUTO 0.04 K/mm3 (0.00-0.23); BASOPHILS PERCENT AUTO 0 % (0-2); EOSINOPHILS ABSOLUTE AUTO 0.13 K/mm3 (0.00-0.68); EOSINOPHILS PERCENT AUTO 1 % (0-6); Hematocrit 32.7 % (33.0-51.0); Hemoglobin 10.7 g/dL (11.5-16.0); IMMATURE GRAN ABSOLUTE AUTO 0.49 K/mm3 (0.00-0.10); IMMATURE GRAN PERCENT AUTO 5 % (0-1); LYMPHOCYTES PERCENT AUTO 14 % (21-46); MONOCYTES ABSOLUTE AUTO 0.52 K/mm3 (0.16-1.47); MONOCYTES PERCENT AUTO 5 % (4-13); Mean Corpuscular HGB 28.8 pg (26.0-34.0); Mean Corpuscular HGB Conc 32.7 g/dL (31.5-36.5); Mean Corpuscular Volume 88 fL (80-100); Mean Platelet Volume 10.7 fL (9.1-12.4); NEUTROPHILS ABSOLUTE AUTO 7.77 K/mm3 (1.96-9.15); NEUTROPHILS PERCENT AUTO 74 % (41-73); Platelet Count 170 K/mm3 (150-400); RDW Coefficient Variation 13.7 % (11.7-14.2); Red Blood Cell Count 3.71 M/mm3 (3.80-5.20); White Blood Cell Count 10.45 K/mm3 (4.00-11.30)
[2023-06-21 04:52] LABS: Bun/Creatinine Ratio 26.4 (12.0-20.0); Calcium, Blood 8.3 mg/dL (8.5-10.1); Creatinine, Blood 0.68 mg/dL (0.40-1.00); Potassium, Blood 3.7 mmol/L (3.5-5.5)
[2023-06-21 07:11] VITALS: BP 131/80
--- NOTE | 2023-06-21 07:38 | NUR ---
SUMMARY PT REPORTS GOOD PAIN CONTROL.OSTOMY PATENT OF LIQ BROWN STOOL.
[2023-06-21] MEDS ORDERED: HYDROcodone 5-APAP 325 TAB PO PRN (09:30)
[2023-06-21 14:52] VITALS: BP 136/87
--- NOTE | 2023-06-21 17:36 | NUR ---
SHIFT SUMMARY POD9 SIG COL W/OSTOMY, MIDLINE MEDIPORE D/I, BROWN STOOL OUT, PT EMPTYING BAG WITH ASSIST. A&OX4, VSS/RA, SHERLEY PO REG DIET/DENIES N&V, VOIDING WELL, AMB SBA FWW/GB TO BRP/HALLWAY AND UP TO CHAIR, PAIN MANAGED WITH NORCO 5MG Q6 PRN, EXT DWELL DRAWS/FLUSHES WELL/SL. WILL REPORT TO ONCOMING NOC RN.
[2023-06-21 20:42] VITALS: BP 140/72
[2023-06-22 02:58] VITALS: BP 138/74
[2023-06-22 06:24] LABS: Bun/Creatinine Ratio 20.8 (12.0-20.0); Calcium, Blood 8.1 mg/dL (8.5-10.1); Creatinine, Blood 0.72 mg/dL (0.40-1.00); Potassium, Blood 3.3 mmol/L (3.5-5.5)
--- NOTE | 2023-06-22 06:31 | NUR ---
SUMMARY REPORTS SLEPT WELL AND HAS ADEQUATE PAIN CONTROL.
[2023-06-22 07:27] VITALS: BP 135/69
[2023-06-22] MEDS ORDERED: Lisinopril 5 MG Tab PO SCH (09:00)
[2023-06-22] MEDS ORDERED: Potassium Chloride 20 MEQ TabCR PO ONE (11:00)
[2023-06-22] MEDS ORDERED: Acetaminophen650 M1 PO (11:15)
[2023-06-22] MEDS ORDERED: Norco 5-325 Ta1 EACH PO (11:16)
[2023-06-22] MEDS ORDERED: MIRALAX17 GM PO (11:17)
[2023-06-22] MEDS ORDERED: NYSTATIN15 GM TOP (11:17)
[2023-06-22] MEDS ORDERED: SPIR25 PO (11:18)
--- NOTE | 2023-06-22 12:11 | NUR ---
SHIFT SUMMARY POD 10 SIG COL W/OSTOMY. MIDLINE MEDIPORE WNL. DRESSING C/D/I. PASSING LARGE AMOUNT OF BROWN LIQUID STOOL. A&OX4. 1 EPISODE OF EMISIS IMMEDIATELY FOLLOWIGN ORAL INTAKE OF POTASSIUM TABS. POTASSIUM TABS READMINISTERED. PAIN MANAGED PER EMAR. VSS. PLAN TO DISCHARGE HOME WITH SON. HOME HEALTH ORDERS HAVE BEEN PLACED.
--- NOTE | 2023-06-28 15:46 | NUR ---
FOLLOW UP PHONE CALL TO FAMILY PER REQUEST. PATIENT DID NOT HAVE THE SUPPLIES THAT SHE NEEDED TO TAKE CARE OF HER OSTOMY. I CALLED TO FOLLOW UP TO MAKE SURE THAT THEY HAD THE SUPPLIES AND SUPPORT THAT THEY NEEDED. THERE WAS SOME CONCERN ABOUT THE GAS OUTPUT AND SOME SKIN BREAKDOWN. HOME HEALTH WILL BE OUT TOMORROW AND I RECOMENDED THAT THEY RELAY THESE CONCERNS.
== END 2023-06-22 12:19 | disposition home health service (06) | DRG 329 ==
LOC: ER 09:38 → SURS 09:39 → ICUE 13:06 → SURS 13:06 → ICUE 06-13 20:20 → SURS 06-14 14:23
PROVIDERS: Emergency Medicine; Internal Medicine; Student in an Organized Health Care Education/Training Program; ADMIT Surgery
PROC: 0D1M0Z4 Bypass Descending Colon to Cutaneous, Open Approach (ICD-10-PCS; 2023-06-12)
PROC: 0DH67UZ Insertion of Feeding Device into Stomach, Via Natural or Artificial Opening (ICD-10-PCS; 2023-06-12)
PROC: 0DTN0ZZ Resection of Sigmoid Colon, Open Approach (ICD-10-PCS; principal; 2023-06-12 13:00)
DX: K56.609 Unspecified intestinal obstruction, unspecified as to partial versus complete obstruction (principal); R65.11 Systemic inflammatory response syndrome (SIRS) of non-infectious origin with acute organ dysfunction; C18.7 Malignant neoplasm of sigmoid colon; N17.9 Acute kidney failure, unspecified; R54 Age-related physical debility; I10 Essential (primary) hypertension; Z79.899 Other long term (current) drug therapy; Z79.811 Long term (current) use of aromatase inhibitors; E86.0 Dehydration; Z98.890 Other specified postprocedural states; E87.6 Hypokalemia
CPT/HCPCS: 36415; 74176; 80048; 80053; 80069; 81001; 82570; 82803; 82947; 83605; 83735; 84100; 84300; 84478; 85025; 87040; 88309; 94760; 94762; 96365; 96366; 96367; 96372; 96375; 97110; 97116; 97161; 97166; 97530; 97530-CQ; 97535; 99285-25; A9270; C1751; G0378; J0295; J0360; J1100; J1170; J1650; J1885; J1940; J2371; J2405; J2704; J3010; J3411; J3480; J7030; J7040; J7050; J7070; J7120

== ENCOUNTER → 2023-08-04 | Outpatient (CLI) | payer MEDICARE ==
[~2023-08-04] MED LIST changes: +Acetaminophen650 M1 PO; +METAMUCIL POWD798 GM PO; +MIRALAX17 GM PO; +NYSTATIN15 GM TOP; +Norco 5-325 Ta1 EACH PO; +SPIR25 PO; +VANCOCIN HCL125 MG PO
[2023-08-04 15:13] LABS: Albumin, Blood 3.4 g/dL (3.4-5.0); Albumin/Globulin Ratio 1.2 (0.8-1.8); Bilirubin, Total 0.3 mg/dL (0.1-1.0); Bun/Creatinine Ratio 13.1 (12.0-20.0); Calcium, Blood 8.5 mg/dL (8.5-10.1); Creatinine, Blood 0.99 mg/dL (0.40-1.00); Globulin, Blood 2.9 g/dL (2.2-4.0); Potassium, Blood 3.8 mmol/L (3.5-5.5); Total Protein, Blood 6.3 g/dL (6.4-8.2)
== END ==
LOC: LAB 13:31 → LAB SHORT 13:31
PROVIDERS: Nurse Practitioner Family
DX: A04.72 Enterocolitis due to Clostridium difficile, not specified as recurrent (principal); E87.6 Hypokalemia
CPT/HCPCS: 80053

== ENCOUNTER 2023-11-24 08:28 | Day surgery (SDC) | payer MEDICARE ==
[~2023-11-24] VITALS: Ht 165.1 cm; Wt 98.8 kg
[2023-11-24] MEDS ORDERED: Calcium Carbon500 MG (08:41)
[2023-11-24] MEDS ORDERED: THERA-D2000 UNIT (08:41)
[2023-11-24] MEDS ORDERED: Alphagan P5 ML (08:41)
[2023-11-24] MEDS ORDERED: FISH OIL 1,0001 EA10 (08:42)
[2023-11-24] MEDS ORDERED: Norco 5-325 Ta1 EACH (08:42)
[2023-11-24] MEDS ORDERED: MOTRIN IB200 MG (08:42)
[2023-11-24] MEDS ORDERED: LOSA50 (08:43)
[2023-11-24] MEDS ORDERED: LISI20 (08:43)
[2023-11-24] MEDS ORDERED: MIRALAX17 GM (08:43)
[2023-11-24] MEDS ORDERED: NYSTRIT (08:43)
[2023-11-24] MEDS ORDERED: ONDA4ODT (08:43)
[2023-11-24] MEDS ORDERED: PRED FORTE5 ML (08:43)
[2023-11-24] MEDS ORDERED: ALDACTONE100 MG (08:44)
[2023-11-24] MEDS ORDERED: ASCORBIC ACID500 MG (08:44)
[2023-11-24] MEDS ORDERED: Lactated Ringer's 1,000 ML IV ONE (09:11)
[2023-11-24] MEDS ORDERED: propofoL 40 ML IV ONE (09:40)
[2023-11-24 10:49] VITALS: BP 145/84
== END 2023-11-24 11:14 | disposition home or self-care (01) ==
LOC: ORSCSDS 08:28
PROVIDERS: Surgery
PROC: 0DJD8ZZ Inspection of Lower Intestinal Tract, Via Natural or Artificial Opening Endoscopic (ICD-10-PCS; principal; 2023-11-24 09:45)
DX: Z85.048 Personal history of other malignant neoplasm of rectum, rectosigmoid junction, and anus (principal); Z93.3 Colostomy status; I10 Essential (primary) hypertension; E78.00 Pure hypercholesterolemia, unspecified; N17.9 Acute kidney failure, unspecified; Z79.899 Other long term (current) drug therapy; E66.9 Obesity, unspecified; Z68.38 Body mass index [BMI] 38.0-38.9, adult
CPT/HCPCS: J2704; J7120

== ENCOUNTER 2024-11-24 06:09 | Day surgery (SDC) | payer MEDICARE ==
[~2024-11-24] VITALS: Ht 165.1 cm; Wt 106.3 kg
[~2024-11-24 06:09] MED LIST changes: +ALDACTONE100 MG; +ASCORBIC ACID500 MG; +Alphagan P5 ML; +Calcium Carbon500 MG; +FISH OIL 1,0001 EA10; +LISI20; +LOSA50; +MIRALAX17 GM; +MOTRIN IB200 MG; +NYSTRIT; +Norco 5-325 Ta1 EACH; +ONDA4 PO; +ONDA4ODT; +PRED FORTE5 ML; +THERA-D2000 UNIT
[2024-11-24] MEDS ORDERED: LATA.005SO BOTHEYES (06:49)
[2024-11-24] MEDS ORDERED: C COMPLEX1000 M1 PO (06:51)
[2024-11-24] MEDS ORDERED: Ondansetron HCl 2 MG / ML 2ML Vial ONE (06:54)
[2024-11-24] MEDS ORDERED: FentaNYL Citrate 50 MCG/ML 2 ML Injection ONE (06:54)
[2024-11-24] MEDS ORDERED: Dexamethasone Sod Phos 10 MG/ML 1ML VIAL ONE (06:54)
[2024-11-24] MEDS ORDERED: CeFAZolin Sodium 2,000 MG VIAL ONE (07:01)
[2024-11-24] MEDS ORDERED: ePHEDrine Sulfate 50 MG/ML 1ML Injection ONE (07:43)
[2024-11-24] MEDS ORDERED: Bupivacaine 0.5% HCl 5 MG/ML 30MLVIAL XX ONE (07:55)
--- NOTE | 2024-11-24 08:39 | NUR ---
11/24/24 0839 Denise Ferraro 0835: DR NICOLE AT BEDSIDE SPEAKING WITH PATIENT 0837: XRAY AT BEDSIDE
--- NOTE | 2024-11-24 08:44 | NUR ---
11/24/24 0844 Denise Ferraro REPORT RECEIVED FROM JULIANNA AND RN. PT DROWSY AND DISORIENTED UPON ARRIVAL TO PACU. PT HAS PRODUCTIVE COUGH, ORAL SUCTIONING PROVIDED. VSS. PT ON RA. PT ORIENTED X3 PRIOR TO DISCHARGE FROM PACU. PT FOLLOWS COMMANDS AND ANSWERS QUESTIONS. RADIOLOGY NOTIFIED OF PATIENT IN PACU AT 0823. DRESSING CDI. PT DENIES PAIN OR NAUSEA AT THIS TIME.
[2024-11-24 08:59] VITALS: BP 131/76
== END 2024-11-24 09:26 | disposition home or self-care (01) ==
LOC: ORSCSDS 06:09
PROVIDERS: Surgery
PROC: 05HM33Z Insertion of Infusion Device into Right Internal Jugular Vein, Percutaneous Approach (ICD-10-PCS; principal; 2024-11-24 07:30)
PROC: B543ZZA Ultrasonography of Right Jugular Veins, Guidance (ICD-10-PCS; principal; 2024-11-24 07:30)
PROC: 0JH63WZ Insertion of Totally Implantable Vascular Access Device into Chest Subcutaneous Tissue and Fascia, Percutaneous Approach (ICD-10-PCS; principal; 2024-11-24 07:30)
DX: C18.7 Malignant neoplasm of sigmoid colon (principal); C78.7 Secondary malignant neoplasm of liver and intrahepatic bile duct; I10 Essential (primary) hypertension; E78.5 Hyperlipidemia, unspecified; Z79.899 Other long term (current) drug therapy; E66.01 Morbid (severe) obesity due to excess calories; Z68.39 Body mass index [BMI] 39.0-39.9, adult
CPT/HCPCS: 77001; C1788; J0690; J1100; J1642; J2003; J2405; J2704; J3010